=== PATIENT | male | born 1980 ===

== ENCOUNTER 2019-11-02 21:41 | Emergency (ER) | payer OTHER ==
[2019-11-02 22:03] LABS: Arterial Blood Carboxyhemoglob 1.1 % (0-1.5); Blood Gas Oxyhemoglobin 96.2 % (94-97); Blood O2 Saturation 97.9 % (92-98.5)
--- NOTE | 2019-11-02 22:10 | RAD REPORT ---
EXAM DESCRIPTION: Alina Single View11/02/2019 10:03 pm CLINICAL HISTORY: cough COMPARISON: none FINDINGS: The lungs appear clear of acute infiltrate. The heart is normal size IMPRESSION: No acute abnormalities displayed
[2019-11-02] MEDS ORDERED: INSULIN -REGULAR HUMAN 50 UNIT/0.5 ML ML ONE (22:59)
[2019-11-02] MEDS ORDERED: NA CHLORIDE 0.9% 2,000 ML ONE (23:00)
[2019-11-02 23:09] LABS: Absolute Lymphocytes (CBC) 3.7 K/uL (0.7-4.9); Basophils % 0.7 % (0-1.3); Lymphocytes % 32.8 % (15.3-44.8); RBC Red Blood Cell Count 5.18 M/uL (4.33-5.43)
[2019-11-02 23:11] LABS: Protime INR 0.9
[2019-11-02 23:42] LABS: ALT/SGPT 54 U/L (12-78); AST/SGOT 24 U/L (15-37); Albumin 3.6 g/dL (3.4-5.0); Alkaline Phosphatase 144 U/L (45-117); BUN Blood Urea Nitrogen 19 mg/dL (7-18); Bicarbonate 28 mmol/L (21-32); Bilirubin Direct 0.1 mg/dL (0-0.2); Bilirubin Total 0.3 mg/dL (0.2-1.0); Glucose Level 315 mg/dL (74-106); Lipase 29 U/L (73-393); Magnesium 2.3 mg/dL (1.8-2.4); NT PRO-BNP 22 pg/mL (<125); Potassium 4.2 mmol/L (3.5-5.1); Protein, Total 7.4 g/dL (6.4-8.2); Sodium Level 133 mmol/L (136-145); Troponin (Emerg Dept Use Only) < 0.02 ng/mL (0.0-0.045)
[2019-11-02 23:56] LABS: Urine Blood NEGATIVE (NEG); Urine Glucose 2+ (NEG); Urine Protein NEGATIVE (NEG); Urine Specific Gravity <1.005 (1.005-1.030)
--- NOTE | 2019-11-03 00:09 | ER ---
Nurse's Notes [facility] Name: Eriberto Lindsey Age: 38 yrs Sex: Male : 1980 Arrival Date: 11/02/2019 Time: 21:44 Bed 5 Private MD: Diagnosis: Type 1 diabetes mellitus Presentation: 11/02 21:44 Presenting complaint: EMS states: Pt was recently released from [place] [id number] where he was staying due to DKA. PT went for his normal check up at the [facility] and their meter read high. They gave 20 units of regular insulin and 16 units of fast acting per sliding scale. We checked it upon arrival to scene. BGL was 273. OUTBOARD MOTOR TESTER to ED BGL was 452. 21:44 Transition of care: patient was not received from another setting of care. Onset of 4 symptoms was November 02, 2019. Risk Assessment: Do you want to hurt yourself or someone else? Patient reports no desire to harm self or others. Initial Sepsis Screen: Does the patient meet any 2 criteria? No. Patient's initial sepsis screen is negative. Does the patient have a suspected source of infection? No. Patient's initial sepsis screen is negative. Care prior to arrival: None. 21:44 Method Of Arrival: EMS: [place] [id number] 21:44 Acuity: ROSALIA 3 jb4 Historical: - Allergies: 21:44 No Known Allergies; jb4 - Home Meds: 21:44 aspirin 81 mg Oral chew 1 tab once daily [Active]; lisinopril 10 mg Oral tab 1 tab once jb4 daily [Active]; Novolin N 100 unit/mL Sub-Q susp 30 unit QAM [Active]; Novolin N 100 unit/mL Sub-Q susp 20 unit QPM [Active]; Novolin R 100U/ML Sub-Q 8 unit three times a day [Active]; Novolin R 100 U/ML Sub-Q 1 unit Sliding scale [Active]; metformin 1,000 mg Oral tr24 1 tab once daily [Active]; - PMHx: 21:44 Hypertension; Diabetes - IDDM; jb4 - PSHx: 21:44 None; jb4 - Immunization history:: Adult Immunizations up to date. - Coronavirus screen:: The patient has NOT traveled to [place] in the past 14 days. Proceed with normal triage process as indicated. The patient has NOT had contact with known/suspected case of Coronavirus? Proceed with normal triage procedures. - Social history:: Smoking status: Patient denies any tobacco usage or history of. Patient/guardian denies using alcohol, street drugs. - Family history:: not pertinent. - Ebola Screening: : No symptoms or risks identified at this time. Screenin:44 Abuse screen: Denies threats or abuse. Nutritional screening: No deficits noted. jb4 Tuberculosis screening: No symptoms or risk factors identified. Fall Risk None identified. Assessment: 21:44 General: Appears in no apparent distress. comfortable, Behavior is calm, cooperative, jb4 appropriate for age. Pain: Denies pain. Neuro: Level of Consciousness is awake, alert, obeys commands, Oriented to person, place, time, situation. Cardiovascular: Patient's skin is warm and dry. Respiratory: Airway is patent Respiratory effort is even, unlabored, Respiratory pattern is regular, symmetrical. GI: No signs and/or symptoms were reported involving the gastrointestinal system. : No signs and/or symptoms were reported regarding the genitourinary system. EENT: No signs and/or symptoms were reported regarding the EENT system. Derm: Skin is healthy with good turgor, Skin is pink, warm \T\ dry. Musculoskeletal: Circulation, motion, and sensation intact. Range of motion: intact in all extremities. 23:00 Reassessment: Patient appears in no apparent distress at this time. Patient and/or jb4 family updated on plan of care and expected duration. Pain level reassessed. Patient is alert, oriented x 3, equal unlabored respirations, skin warm/dry/pink. 11/03 00:00 Reassessment: Patient appears in no apparent distress at this time. Patient and/or jb4 family updated on plan of care and expected duration. Pain level reassessed. Patient is alert, oriented x 3, equal unlabored respirations, skin warm/dry/pink. 01:00 Reassessment: Patient appears in no apparent distress at this time. Patient and/or jb4 family updated on plan of care and expected duration. Pain level reassessed. Patient is alert, oriented x 3, equal unlabored respirations, skin warm/dry/pink. Vital Signs: 11/02 21:44 BP 124 / 89; Pulse 88; Resp 16; Temp 97.9(TE); Pulse Ox 100% on R/A; Weight 86.18 kg jb4 (R); Height 5 ft. 11 in. (180.34 cm) (R); Pain 0/10; 23:00 BP 114 / 89; Pulse 92; Resp 18; Pulse Ox 100% on R/A; jb4 11/03 00:00 BP 120 / 85; Pulse 82; Resp 16; Pulse Ox 93% on R/A; jb4 00:45 BP 106 / 75; Pulse 80; Resp 18; Pulse Ox 100% on R/A; jb4 11/02 21:44 Body Mass Index 26.50 (86.18 kg, 180.34 cm) jb4 ED Course: 11/02 21:44 Patient arrived in ED. aa1 21:44 Patient has correct armband on for positive identification. Bed in low position. Call jb4 light in reach. Side rails up X 1. Pulse ox on. NIBP on. 21:44 Arm band placed on right wrist. jb4 21:45 Kamlesh Mac MD is Attending Physician. [facility] 21:51 Teto Stokes, BIANKA is Primary Nurse. jb4 22:03 Triage completed. jb4 22:20 Missed attempt(s): 22 gauge in left antecubital area. Bleeding controlled, band aid aa1 applied, catheter tip intact. 22:25 Missed attempt(s): 20 gauge in right EJ. Bleeding controlled, band aid applied, aa1 catheter tip intact. 22:30 Initial lab(s) drawn, by ED staff, sent to lab. First set of blood cultures drawn by aa1 physician. Inserted saline lock: 18 gauge in left EJ, using aseptic technique. Blood collected. 22:47 Second set of blood cultures drawn by physician. aa1 11/03 01:02 No provider procedures requiring assistance completed. IV discontinued, intact, jb4 bleeding controlled, No redness/swelling at site. Pressure dressing applied. Administered Medications: 11/02 23:00 Drug: NS 0.9% 1000 ml Route: IV; Rate: 1 bolus; Site: left jugular; jb4 11/03 00:30 Follow up: Response: No adverse reaction; IV Status: Completed infusion; IV Intake: jb4 1000ml 11/02 23:00 Drug: NS 0.9% 1000 ml Route: IV; Rate: 1 bolus; Site: left jugular; jb4 11/03 00:30 Follow up: Response: No adverse reaction; IV Status: Completed infusion; IV Intake: jb4 1000ml 11/02 23:00 Drug: Insulin Regular Human 10 units {Co-Signature: neela (Martin Braun RN).} Route: jb4 IVP; Site: left jugular; 11/03 00:00 Follow up: Response: No adverse reaction; Blood sugar is lowered jb4 00:37 Follow up: Response: No adverse reaction; Blood sugar is lowered jb4 11/02 23:00 Drug: Insulin Regular Human 10 units {Co-Signature: neela (Martin Braun RN).} Route: jb4 Sub-Q; Site: right upper arm; 11/03 00:37 Follow up: Response: No adverse reaction; Blood sugar is lowered jb4 00:56 Drug: LanTUS 40 units Route: Sub-Q; Site: left upper arm; jb4 00:59 Follow up: Response: No adverse reaction; Medication administered at discharge. jb4 01:04 Not Given (PT discharged): NS 0.9% 1000 ml IV at 125 ml/hr continuous jb4 Point of Care Testing: Blood Glucose: 11/02 21:45 Blood Glucose: 436 mg/dL; aa1 Ranges: Intake: 11/03 00:30 IV: 1000ml; Total: 1000ml. jb4 00:30 IV: 1000ml; Total: 2000ml. jb4 Outcome: 00:08 Discharge ordered by . ana lilia 01:02 Discharged to Law Enforcement jb4 01:02 Condition: stable 01:02 Discharge instructions given to patient, senior property accountant, Instructed on discharge instructions, follow up and referral plans. Demonstrated understanding of instructions, follow-up care. 01:04 Patient left the ED. jb4 Signatures: Ann Farnsworth, RN RN aa1 Kamlesh Mac MD MD cha Bryson, James, RN RN jb4 Martin Braun RN jd3 Corrections: (The following items were deleted from the chart) 03:49 00:00 Response: No adverse reaction; Blood sugar is lowered jb4 jb4
--- NOTE | 2019-11-03 00:10 | EDPHYS ---
Physician Documentation [facility] Name: Eriberto Lindsey Age: 38 yrs Sex: Male : 1980 Arrival Date: 11/02/2019 Time: 21:44 Bed 5 Private MD: ED Physician Kamlesh Mac HPI: 11/02 22:48 This 38 yrs old Male presents to ER via EMS with complaints of weakness and ana lilia high sugar. 22:48 Severity of symptoms: At their worst the symptoms were mild. The patient has ana lilia experienced similar episodes in the past, multiple times. Historical: - Allergies: 21:44 No Known Allergies; jb4 - Home Meds: 21:44 aspirin 81 mg Oral chew 1 tab once daily [Active]; lisinopril 10 mg Oral tab 1 tab once jb4 daily [Active]; Novolin N 100 unit/mL Sub-Q susp 30 unit QAM [Active]; Novolin N 100 unit/mL Sub-Q susp 20 unit QPM [Active]; Novolin R 100U/ML Sub-Q 8 unit three times a day [Active]; Novolin R 100 U/ML Sub-Q 1 unit Sliding scale [Active]; metformin 1,000 mg Oral tr24 1 tab once daily [Active]; - PMHx: 21:44 Hypertension; Diabetes - IDDM; jb4 - PSHx: 21:44 None; jb4 - Immunization history:: Adult Immunizations up to date. - Coronavirus screen:: The patient has NOT traveled to [place] in the past 14 days. Proceed with normal triage process as indicated. The patient has NOT had contact with known/suspected case of Coronavirus? Proceed with normal triage procedures. - Social history:: Smoking status: Patient denies any tobacco usage or history of. Patient/guardian denies using alcohol, street drugs. - Family history:: not pertinent. - Ebola Screening: : No symptoms or risks identified at this time. ROS: 22:48 Constitutional: Negative for fever, chills, and weight loss, Eyes: Negative for injury, ana lilia pain, redness, and discharge, ENT: Negative for injury, pain, and discharge, Neck: Negative for injury, pain, and swelling, Cardiovascular: Negative for chest pain, palpitations, and edema, Respiratory: Negative for shortness of breath, cough, wheezing, and pleuritic chest pain, Abdomen/GI: Negative for abdominal pain, nausea, vomiting, diarrhea, and constipation, Back: Negative for injury and pain, : Negative for injury, bleeding, discharge, and swelling, MS/Extremity: Negative for injury and deformity, Skin: Negative for injury, rash, and discoloration, Neuro: Negative for headache, weakness, numbness, tingling, and seizure, Psych: Negative for depression, anxiety, suicide ideation, homicidal ideation, and hallucinations, Allergy/Immunology: Negative for hives, rash, and allergies, Endocrine: Negative for neck swelling, polydipsia, polyuria, polyphagia, and marked weight changes. Exam: 22:48 Constitutional: This is a well developed, well nourished patient who is awake, alert, ana lilia and in no acute distress. Head/Face: Normocephalic, atraumatic. Eyes: Pupils equal round and reactive to light, extra-ocular motions intact. Lids and lashes normal. Conjunctiva and sclera are non-icteric and not injected. Cornea within normal limits. Periorbital areas with no swelling, redness, or edema. ENT: Nares patent. No nasal discharge, no septal abnormalities noted. Tympanic membranes are normal and external auditory canals are clear. Oropharynx with no redness, swelling, or masses, exudates, or evidence of obstruction, uvula midline. Mucous membranes moist. Neck: Trachea midline, no thyromegaly or masses palpated, and no cervical lymphadenopathy. Supple, full range of motion without nuchal rigidity, or vertebral point tenderness. No Meningismus. Chest/axilla: Normal chest wall appearance and motion. Nontender with no deformity. No lesions are appreciated. Cardiovascular: Regular rate and rhythm with a normal S1 and S2. No gallops, murmurs, or rubs. Normal PMI, no JVD. No pulse deficits. Respiratory: Lungs have equal breath sounds bilaterally, clear to auscultation and percussion. No rales, rhonchi or wheezes noted. No increased work of breathing, no retractions or nasal flaring. Abdomen/GI: Soft, non-tender, with normal bowel sounds. No distension or tympany. No guarding or rebound. No evidence of tenderness throughout. Back: No spinal tenderness. No costovertebral tenderness. Full range of motion. Skin: Warm, dry with normal turgor. Normal color with no rashes, no lesions, and no evidence of cellulitis. MS/ Extremity: Pulses equal, no cyanosis. Neurovascular intact. Full, normal range of motion. Neuro: Awake and alert, GCS 15, oriented to person, place, time, and situation. Cranial nerves II-XII grossly intact. Motor strength 5/5 in all extremities. Sensory grossly intact. Cerebellar exam normal. Normal gait. Psych: Awake, alert, with orientation to person, place and time. Behavior, mood, and affect are within normal limits. Vital Signs: 21:44 BP 124 / 89; Pulse 88; Resp 16; Temp 97.9(TE); Pulse Ox 100% on R/A; Weight 86.18 kg jb4 (R); Height 5 ft. 11 in. (180.34 cm) (R); Pain 0/10; 23:00 BP 114 / 89; Pulse 92; Resp 18; Pulse Ox 100% on R/A; jb4 11/03 00:00 BP 120 / 85; Pulse 82; Resp 16; Pulse Ox 93% on R/A; jb4 00:45 BP 106 / 75; Pulse 80; Resp 18; Pulse Ox 100% on R/A; jb4 11/02 21:44 Body Mass Index 26.50 (86.18 kg, 180.34 cm) jb Procedures: 11/02 22:50 Peripheral line: by aseptic technique a peripheral line was placed in the left. [facility] MDM: 21:45 Patient medically screened. [facility] 22:50 Data reviewed: vital signs, nurses notes, lab test result(s), EKG, radiologic studies, ana lilia plain films. 11/02 21:47 Order name: Basic Metabolic Panel [facility] 11/02 21:47 Order name: CBC with Diff [facility] 11/02 21:47 Order name: LFT's [facility] 11/02 21:47 Order name: Magnesium [facility] 11/02 21:47 Order name: NT PRO-BNP 11/02 21:47 Order name: PT-INR [facility] 11/02 21:47 Order name: Troponin (emerg Dept Use Only) [facility] 11/02 21:47 Order name: Lipase 11/02 21:47 Order name: Urine Culture 11/02 21:47 Order name: ABG [facility] 11/02 21:47 Order name: Blood Culture Adult (2) [facility] 11/02 22:40 Order name: ABG Arterial Blood Gas; Complete Time: 23:29 [facility] 11/02 23:16 Order name: CBC with Automated Diff; Complete Time: 23:29 [facility] 11/02 23:17 Order name: Protime (+INR); Complete Time: 23:29 [facility] 11/02 21:47 Order name: XRAY Chest (1 view) [facility] 11/02 22:13 Order name: RAD; Complete Time: 23:29 [facility] 11/02 23:34 Order name: Urine Dipstick--Ancillary (enter results) 11/02 23:43 Order name: Basic Metabolic Panel; Complete Time: 00:06 [facility] 11/02 23:43 Order name: Liver (Hepatic) Function; Complete Time: 00:06 [facility] 11/02 23:43 Order name: Troponin (Emerg Dept Use Only); Complete Time: 00:06 [facility] 11/02 23:43 Order name: NT PRO-BNP; Complete Time: 00:06 [facility] 11/02 23:43 Order name: Magnesium; Complete Time: 00:06 [facility] 11/02 23:43 Order name: Lipase; Complete Time: 00:06 [facility] 11/02 23:57 Order name: Urine Dipstick-Ancillary; Complete Time: 00:06 [facility] 11/03 00:37 Order name: Glucose, Ancillary Testing [facility] 11/02 21:47 Order name: EKG; Complete Time: 21:49 [facility] 11/02 21:47 Order name: Cardiac monitoring; Complete Time: 23:08 [facility] 11/02 21:47 Order name: EKG - Nurse/Tech; Complete Time: 23:08 [facility] 11/02 21:47 Order name: IV Saline Lock; Complete Time: 23:08 [facility] 11/02 21:47 Order name: Labs collected and sent; Complete Time: 23:08 [facility] 11/02 21:47 Order name: O2 Per Protocol; Complete Time: 23:08 [facility] 11/02 21:47 Order name: O2 Sat Monitoring; Complete Time: 23:08 [facility] 11/02 21:47 Order name: Urine Dipstick-Ancillary (obtain specimen); Complete Time: 23: [facility] 11/03 00:07 Order name: Blood Glucose Level; Complete Time: 00:38 [facility] Administered Medications: 23:00 Drug: NS 0.9% 1000 ml Route: IV; Rate: 1 bolus; Site: left jugular; jb4 11/03 00:30 Follow up: Response: No adverse reaction; IV Status: Completed infusion; IV Intake: jb4 1000ml 11/02 23:00 Drug: NS 0.9% 1000 ml Route: IV; Rate: 1 bolus; Site: left jugular; jb4 11/03 00:30 Follow up: Response: No adverse reaction; IV Status: Completed infusion; IV Intake: jb4 1000ml 11/02 23:00 Drug: Insulin Regular Human 10 units {Co-Signature: neela (Martin Braun RN).} Route: jb4 IVP; Site: left jugular; 11/03 00:00 Follow up: Response: No adverse reaction; Blood sugar is lowered jb4 00:37 Follow up: Response: No adverse reaction; Blood sugar is lowered jb4 11/02 23:00 Drug: Insulin Regular Human 10 units {Co-Signature: jeulogio (Martin Braun RN).} Route: jb4 Sub-Q; Site: right upper arm; 11/03 00:37 Follow up: Response: No adverse reaction; Blood sugar is lowered jb4 00:56 Drug: LanTUS 40 units Route: Sub-Q; Site: left upper arm; jb4 00:59 Follow up: Response: No adverse reaction; Medication administered at discharge. jb4 01:04 Not Given (PT discharged): NS 0.9% 1000 ml IV at 125 ml/hr continuous jb4 Point of Care Testing: Blood Glucose: 11/02 21:45 Blood Glucose: 436 mg/dL; aa1 Ranges: Critical Glucose Levels:Adult <50 mg/dl or >400 mg/dl <40 mg/dl or >180 mg/dl Disposition: 11/03/19 00:08 Discharged to Home. Impression: Type 1 diabetes mellitus. - Condition is Stable. - Discharge Instructions: Type 1 Diabetes Mellitus, Diagnosis, Adult, Diabetes Mellitus and Food, Type 1 Diabetes Mellitus, Self Care, Adult, Type 1 Diabetes Mellitus, Diagnosis, Adult, [id number], Type 1 Diabetes Mellitus, Self Care, Adult, [id number], How to Avoid Diabetes Problems. - Medication Reconciliation Form, Thank You Letter, Antibiotic Education, Prescription Opioid Use form. - Follow up: Private Physician; When: 1 - 2 days; Reason: Recheck today's complaints, Continuance of care, Re-evaluation by your physician. - Problem is new. - Symptoms have improved. Signatures: Dispatcher [employer] Kamlesh Jenkins MD MD cha Bryson, James, RN RN jb4 Martin Braun RN jd3 Corrections: (The following items were deleted from the chart) 11/03 01:04 00:08 11/03/2019 00:08 Discharged to Home. Impression: Type 1 diabetes mellitus. jb4 Condition is Stable. Forms are Medication Reconciliation Form, Thank You Letter, Antibiotic Education, Prescription Opioid Use. Follow up: Private Physician; When: 1 - 2 days; Reason: Recheck today's complaints, Continuance of care, Re-evaluation by your physician. Problem is new. Symptoms have improved. ana lilia
[2019-11-03] MEDS ORDERED: INSULIN GLARGINE 100 UNITS/ML SQ ONE (00:50)
[2019-11-03 01:14] VITALS: TEMP 97.9
[2019-11-03 01:27] VITALS: BP 106/75; O2SAT 100
--- NOTE | 2019-11-03 07:45 | EKG ---
Test Date: 2019-11-02 Test Time: 23:18:46 Leather Stripping Machine Operator: ELIEZER MEASUREMENT RESULTS: Intervals: Rate: 84 DC: 160 QRSD: 88 QT: 372 QTc: 439 [place]: P: 67 DC: 160 QRS: 19 T: 38 INTERPRETIVE STATEMENTS: Normal sinus rhythm Low voltage QRS Borderline ECG No previous ECG available for comparison Electronically Signed On 11-03-19 07:44:32 PRACTICE SUPPORT SPECIALIST by Olvin Singh
== END 2019-11-03 01:04 | disposition home or self-care (01) ==
LOC: ER 21:41
PROC: 05HQ33Z Insertion of Infusion Device into Left External Jugular Vein, Percutaneous Approach (ICD-10-PCS; principal; 2019-11-03)
DX: E10.65 Type 1 diabetes mellitus with hyperglycemia (principal); Z79.4 Long term (current) use of insulin; I10 Essential (primary) hypertension; Z79.82 Long term (current) use of aspirin
CPT/HCPCS: 96361; 93005; 87040 ×2; 87088; 85025; 80048; 36415; 83735; 85610; 82947 ×2; 80076; 81003; 84484; 83690; 83880; 71045; 82805; 96372; 96374; 99284; 36569; J1815; 87086; J7030